=== PATIENT | female | born 1955 | race Caucasian/White ===

== ENCOUNTER 2023-07-27 15:51 | Emergency (ER) | payer OTHER ==
[2023-07-27 18:38] LABS: Absolute Basophils 0.1 K/uL (0-0.5); Absolute Eosinophils 0.2 K/uL (0-0.5); Absolute Lymphocytes (CBC) 1.8 K/uL (0.7-4.9); Absolute Monocytes 0.5 K/uL (0.1-1.3); Basophils % 0.8 % (0-1.3); Eosinophils % 2.8 % (0-4.4); Hematocrit 47.3 % (36.0-45.0); Hemoglobin 15.7 g/dL (12.0-15.0); MCH 29.5 pg (27.0-35.0); MCHC 33.1 g/dL (32.0-36.0); Monocytes % 6.3 % (3.3-12.3); Neutrophils % 69.1 % (41.7-73.7); Nucleated Red Blood Cells % 0.1 % (0-0); Platelets 198 thou/uL (152-406); RBC Red Blood Cell Count 5.32 M/uL (3.86-4.86); Red Cell Distribution Width 13.1 % (12.1-15.2)
[2023-07-27 18:57] LABS: Albumin 3.8 g/dL (3.4-5.0); Albumin/Globulin Ratio 0.9 (1.1-1.8); Bilirubin Total 0.5 mg/dL (0.2-1.0); Globulin 4.4 g/dL (2.3-3.5); Protein, Total 8.2 g/dL (6.4-8.2)
[2023-07-27] MEDS ORDERED: ONDANSETRON 4 MG/2 ML VIAL ONE (19:22)
[2023-07-27] MEDS ORDERED: PANTOPRAZOLE 40 MG INJ ONE (19:23)
[2023-07-27] MEDS ORDERED: NA CHLORIDE 0.9% 1,000 ML ONE (19:23)
[2023-07-27] MEDS ORDERED: FAMOTIDINE 20 MG/2 ML VIAL IV ONE (19:23)
--- NOTE | 2023-07-27 20:38 | RAD REPORT ---
EXAM DESCRIPTION: CT - Chest Abdomen W Con - 07/27/2023 8:27 pm CLINICAL HISTORY: Chest and abdomen pain. hematemesis/bronchitis COMPARISON: Abdomen Pelvis W Contrast dated 02/11/2022Lung Cancer Screening CT W/O dated 03/13/2019 ; Abdomen Angio dated 09/14/2020 TECHNIQUE: Approximately 100 mL nonionic IV contrast was administered to the patient. All CT scans are performed using dose optimization technique as appropriate and may include automated exposure control or mA/KV adjustment according to patient size. FINDINGS: The lungs are clear.Aberrant right subclavian artery.No pleural or pericardial effusion.No intrathoracic adenopathy.2 cm inferiorly projecting left thyroid nodule. The liver demonstrates fatty infiltration. Spleen, adrenal glands and kidneys are within normal limit s. There is 23 x 21 mm hypodense lesion mid body of the pancreas. This may represent IPMN. No bowel obstruction, free air, free fluid or abscess. Moderate stool throughout the colon. Small fat containing ventral hernias. No pathologic lymphadenopathy in the abdomen or pelvis. No acute fracture is seen. IMPRESSION: No acute abnormality is detected. 23 mm hypodense lesion midbody pancreas may represent IPMN or cystic neoplasm. Recommend nonemergent MRI pancreas followup for further workup.
--- NOTE | 2023-07-27 20:49 | ER ---
Nurse's Notes [facility] Name: Christina Madsen Age: 68 yrs Sex: Female : 1955 Arrival Date: 07/27/2023 Time: 15:51 Bed 12 Private MD: Diagnosis: Other gastritis Presentation: 07/26 16:51 Chief complaint: Patient states: ABD PAIN STARTED TODAY FELT LIKE "STOMACH DOING db FLIPS". NAUSEA AND VOMITING TODAY. VOMITED BLOOD. Coronavirus screen: Client denies travel out of the [place] in the last 14 days. At this time, the client does not indicate any symptoms associated with coronavirus-19. Ebola Screen: Patient negative for fever greater than or equal to 101.5 degrees Fahrenheit, and additional compatible Ebola Virus Disease symptoms Patient denies exposure to infectious person. Patient denies travel to an Ebola-affected area in the 21 days before illness onset. No symptoms or risks identified at this time. Initial Sepsis Screen: Does the patient meet any 2 criteria? No. Patient's initial sepsis screen is negative. Does the patient have a suspected source of infection? No. Patient's initial sepsis screen is negative. Risk Assessment: Do you want to hurt yourself or someone else? Patient reports no desire to harm self or others. Onset of symptoms was July 27, 2023. 16:51 Method Of Arrival: Ambulatory db 16:51 Acuity: TOÑO 3 db Triage Assessment: 16:52 General: Appears in no apparent distress. uncomfortable, Behavior is cooperative, db anxious. Pain: Complains of pain in abdomen. Neuro: Level of Consciousness is awake, alert, obeys commands, Oriented to person, place, time, situation. Respiratory: Airway is patent Respiratory effort is even, unlabored, Respiratory pattern is regular, symmetrical. GI: Reports nausea, vomiting. Historical: - Allergies: 16:55 No Known Allergies; db - PMHx: 16:55 Hypertensive disorder; HIATAL HERNIA; GASTRITIS; db - PSHx: 16:55 ABDOMINAL ANEURYSM; db - Immunization history:: Adult Immunizations unknown. - Infectious Disease History:: Denies. - Social history:: Smoking status: Patient reports the use of cigarette tobacco products, smokes one-half pack cigarettes per day. Screenin:34 [facility] ED Fall Risk Assessment (Adult) History of falling in the last 3 months, mb9 including since admission No falls in past 3 months (0 pts) Confusion or Disorientation No (0 pts) Intoxicated or Sedated No (0 pts) Impaired Gait No (0 pts) Mobility Assist Device Used No (0 pt) Altered Elimination No (0 pt) Score/Fall Risk Level 0 - 2 = Low Risk Oriented to surroundings, Maintained a safe environment, Educated pt \\T\\ family on fall prevention, incl call for assistance when getting out of bed. Abuse screen: Denies threats or abuse. Nutritional screening: No deficits noted. Tuberculosis screening: No symptoms or risk factors identified. Assessment: 19:33 General: Appears in no apparent distress. Behavior is calm, cooperative. Pain: Denies mb9 pain. Neuro: Mendez Agitation-Sedation Scale (RASS): 0 - Alert and Calm Level of Consciousness is awake, alert, obeys commands, Oriented to person, place, time, situation, Appropriate for age. Cardiovascular: Patient's skin is warm and dry. Respiratory: Airway is patent Respiratory effort is even, unlabored, Respiratory pattern is regular, symmetrical. GI: Abdomen is round non-distended, Abd is soft and non tender X 4 quads. Reports vomiting, blood. : No signs and/or symptoms were reported regarding the genitourinary system. EENT: No signs and/or symptoms were reported regarding the EENT system. Derm: Skin is pink, warm \\T\\ dry. Musculoskeletal: Range of motion: intact in all extremities. 20:57 Reassessment: Patient appears in no apparent distress at this time. Patient and/or mb9 family updated on plan of care and expected duration. Pain level reassessed. Patient is alert, oriented x 3, equal unlabored respirations, skin warm/dry/pink. Patient states feeling better. Patient states symptoms have improved. Vital Signs: 16:51 BP 140 / 107; Pulse 73; Resp 18; Temp 97; Pulse Ox 93% ; Weight 90.72 kg; Height 5 ft. db 8 in. ; 19:34 BP 159 / 97; Pulse 89; Resp 18; Pulse Ox 95% on R/A; Pain 0/10; mb9 20:57 BP 132 / 88; Pulse 91; Resp 18; Pulse Ox 95% on R/A; Pain 0/10; mb9 16:51 Body Mass Index 30.41 (90.72 kg, 172.72 cm) db 19:34 Pain Scale: Adult mb9 20:57 Pain Scale: Adult mb9 ED Course: 15:54 Patient arrived in ED. mg5 16:01 Jaja Valadez PA-C is [facility]. sb4 16:01 Josr Miller MD is Attending Physician. sb4 16:52 Triage completed. db 16:52 Arm band placed on left wrist. db 18:30 Inserted saline lock: 20 gauge in right antecubital area, using aseptic technique. zm Blood collected. 18:31 Initial lab(s) drawn, by me, sent to lab. zm 18:31 CBC with Diff Sent. zm 18:31 CMP Sent. zm 18:31 Lipase Sent. zm 19:32 Amanda Kirby, CIARA is Primary Nurse. mb9 19:34 Fall risk band placed. Placed in gown. Bed in low position. Call light in reach. Side mb9 rails up X 1. Provided Education on: press call light if needing anything. Client placed on continuous cardiac and pulse oximetry monitoring. NIBP monitoring applied. 19:34 No provider procedures requiring assistance completed. mb9 20:28 CT Chest Abdomen W/ Contrast In Process Unspecified. EDMS 20:48 Clyde Hernández MD is Referral Physician. sb4 20:57 IV discontinued, intact, bleeding controlled, No redness/swelling at site. Pressure mb9 dressing applied. Administered Medications: 19:28 Drug: NS 0.9% IV 1000 ml IV at 1 bolus Per protocol; 1000 mL bolus Route: IV; Rate: 1 mb9 bolus; Site: right antecubital; 20:57 Follow up: Response: No adverse reaction; IV Status: Completed infusion mb9 19:30 Drug: Famotidine IVP 20 mg IVP once; dilute with 10 mL 0.9% NaCl; give over 2 minutes mb9 Route: IVP; Site: right antecubital; 20:57 Follow up: Response: No adverse reaction mb9 19:30 Drug: Ondansetron IVP 4 mg IVP once; over 2 minutes Route: IVP; Site: right antecubital;mb9 20:57 Follow up: Response: No adverse reaction mb9 19:32 Drug: Pantoprazole IVP 40 mg IVP once Route: IVP; Site: right antecubital; mb9 20:57 Follow up: Response: No adverse reaction mb9 Medication: 20:58 VIS not applicable for this client. mb9 Outcome: 20:48 Discharge ordered by . toi 20:57 Discharged to home ambulatory, mb9 20:57 Condition: stable 20:57 Discharge instructions given to patient, Instructed on discharge instructions, follow up and referral plans. Demonstrated understanding of instructions, follow-up care, medications, Prescriptions given X 2, 20:58 Patient left the ED. mb9 Signatures: Dispatcher [employer] EDMargarita Schwarz Danielle, RN RN Jaja Desai, PA-C PA-C eder4 Amanda Kirby RN RN mb9 Jory Penny mg5 Corrections: (The following items were deleted from the chart) 16:55 16:51 Pulse 73bpm; Resp 18bpm; Pulse Ox 93%; Temp 97F; db db
--- NOTE | 2023-07-27 20:49 | EDPHYS ---
Physician Documentation [facility] Name: Christina Madsen Age: 68 yrs Sex: Female : 1955 Arrival Date: 07/27/2023 Time: 15:51 Bed 12 Private MD: ED Physician Josr Miller HPI: 07/26 17:08 This 68 yrs old Female presents to ER via Ambulatory with complaints of Abdominal Pain. sb4 17:08 The patient presents with abdominal pain in the epigastric area. Onset: The sb4 symptoms/episode began/occurred this morning. The symptoms do not radiate. Associated signs and symptoms: Pertinent positives: nausea and vomiting, vomiting blood. The symptoms are described as burning. Modifying factors: The symptoms are alleviated by nothing, the symptoms are aggravated by nothing. The patient has not experienced similar symptoms in the past. Historical: - Allergies: 16:55 No Known Allergies; db - PMHx: 16:55 Hypertensive disorder; HIATAL HERNIA; GASTRITIS; db - PSHx: 16:55 ABDOMINAL ANEURYSM; db - Immunization history:: Adult Immunizations unknown. - Infectious Disease History:: Denies. - Social history:: Smoking status: Patient reports the use of cigarette tobacco products, smokes one-half pack cigarettes per day. ROS: 17:08 Constitutional: Negative for fever, chills, and weight loss, sb4 17:08 Respiratory: Positive for cough, 17:08 Abdomen/GI: Positive for abdominal pain, nausea and vomiting, hematemesis, 17:08 All other systems are negative, Exam: 17:09 Constitutional: This is a well developed, well nourished patient who is awake, alert, sb4 and in no acute distress. Head/Face: Normocephalic, atraumatic. Eyes: Extra-ocular motions intact. Periorbital areas with no swelling, redness, or edema. ENT: Mucous membranes moist. Cardiovascular: Regular rate and rhythm with a normal S1 and S2. Respiratory: Lungs have equal breath sounds bilaterally, clear to auscultation and percussion. No rales, rhonchi or wheezes noted. No increased work of breathing, no retractions or nasal flaring. Abdomen/GI: Soft, non-tender, no distension. Skin: Warm, dry with normal turgor. Normal color with no rashes, no lesions, and no evidence of cellulitis. MS/ Extremity: Pulses equal, no cyanosis. Neurovascular intact. Full, normal range of motion. Vital Signs: 16:51 BP 140 / 107; Pulse 73; Resp 18; Temp 97; Pulse Ox 93% ; Weight 90.72 kg; Height 5 ft. db 8 in. ; 19:34 BP 159 / 97; Pulse 89; Resp 18; Pulse Ox 95% on R/A; Pain 0/10; mb9 20:57 BP 132 / 88; Pulse 91; Resp 18; Pulse Ox 95% on R/A; Pain 0/10; mb9 16:51 Body Mass Index 30.41 (90.72 kg, 172.72 cm) db 19:34 Pain Scale: Adult mb9 20:57 Pain Scale: Adult mb9 MDM: 16:48 Patient medically screened. sb4 20:48 Data reviewed: vital signs, nurses notes, lab test result(s), radiologic studies, and sb4 as a result, I will discharge patient. Care significantly affected by the following chronic conditions: Hypertension. Counseling: I had a detailed discussion with the patient and/or guardian regarding the historical points, exam findings, and any diagnostic results supporting the discharge/admit diagnosis, lab results, radiology results, the need for outpatient follow up, a sales planner, to return to the emergency department if symptoms worsen or persist or if there are any questions or concerns that arise at home, smoking cessation. Special discussion: Further emergent ED testing is not indicated at this point in time. I discussed with the patient/guardian in detail the need to arrange with the PCP or specialist further outpatient testing, MRI, I discussed with the patient the need to follow-up with the PCP/specialist for the noted incidental finding on X-ray/CT scanning. 07/26 16:56 Order name: CBC with Diff; Complete Time: 18:47 sb4 07/26 16:56 Order name: CMP; Complete Time: 19:10 sb4 07/26 16:56 Order name: Lipase; Complete Time: 19:10 sb4 07/26 16:56 Order name: CT Chest Abdomen W/ Contrast; Complete Time: 20:40 sb4 07/26 16:56 Order name: IV Saline Lock; Complete Time: 18:30 sb4 07/26 16:56 Order name: Labs collected and sent; Complete Time: 18:30 sb4 Administered Medications: 19:28 Drug: NS 0.9% IV 1000 ml IV at 1 bolus Per protocol; 1000 mL bolus Route: IV; Rate: 1 mb9 bolus; Site: right antecubital; 20:57 Follow up: Response: No adverse reaction; IV Status: Completed infusion mb9 19:30 Drug: Famotidine IVP 20 mg IVP once; dilute with 10 mL 0.9% NaCl; give over 2 minutes mb9 Route: IVP; Site: right antecubital; 20:57 Follow up: Response: No adverse reaction mb9 19:30 Drug: Ondansetron IVP 4 mg IVP once; over 2 minutes Route: IVP; Site: right antecubital;mb9 20:57 Follow up: Response: No adverse reaction mb9 19:32 Drug: Pantoprazole IVP 40 mg IVP once Route: IVP; Site: right antecubital; mb9 20:57 Follow up: Response: No adverse reaction mb9 Disposition Summary: 07/27/23 20:48 Discharge Ordered Notes: Location: Home sb4 Problem: new sb4 Symptoms: have improved sb4 Condition: Stable sb4 Diagnosis - Other gastritis sb4 Followup: sb4 - With: Clyde Hernández MD - When: 1 week - Reason: Further diagnostic work-up, Recheck today's complaints, Re-evaluation by your physician Discharge Instructions: - Discharge Summary Sheet sb4 - Gastritis, Adult, [id number] sb4 Forms: - Patient Portal Instructions sb4 - Leadership Thank You Letter sb4 Prescriptions: - pantoprazole 40 mg Oral tablet, delayed release (enteric coated) - take 1 tablet ORAL route daily for 4 wks; 30 tablet; Refills: 0, Product sb4 Selection Permitted - ondansetron 8 mg Oral Tablet,disintegrating - take 1 tablet ORAL route every 8 hours; 20 tablet; Refills: 0, Product sb4 Selection Permitted Addendum: 07/30/2023 19:05 Co-signature as Attending Physician, Josr Miller MD I reviewed the patient's care r t provided by the Advanced Practice Provider and agree with the diagnosis and treatment plan. Signatures: Dispatcher [employer] Amy Garcia RN RN db Brown, Sophia, PA-C PA-C sb4 Amanda Kirby RN RN mb9 [place], Josr, MD MD rt
[2023-07-27 21:43] VITALS: BP 132/88; TEMP 97; O2SAT 95
== END 2023-07-27 20:58 | disposition home or self-care (01) ==
LOC: ER 15:51
DX: K29.60 Other gastritis without bleeding (principal); I10 Essential (primary) hypertension; F17.210 Nicotine dependence, cigarettes, uncomplicated
CPT/HCPCS: 96361; 85025; 36415; 83690; 80053; 74160; 71260; 96375; 96374; 99284; Q9967; C9113; J2405; J7030

== ENCOUNTER 2023-08-07 02:04 | Emergency (ER) | payer OTHER ==
[2023-08-07] MEDS ORDERED: ONDANSETRON 4 MG/2 ML VIAL ONE (02:48)
[2023-08-07] MEDS ORDERED: MORPHINE 4 MG/ML SYR ONE (03:01)
[2023-08-07 03:19] LABS: Absolute Eosinophils 0.1 K/uL (0-0.5); Absolute Lymphocytes (CBC) 0.5 K/uL (0.7-4.9); Absolute Neutrophil 3.6 K/uL (1.8-8.0); Basophils % 0.6 % (0-1.3); Eosinophils % 1.9 % (0-4.4); Hematocrit 46.3 % (36.0-45.0); Hemoglobin 15.4 g/dL (12.0-15.0); MCH 29.6 pg (27.0-35.0); MCHC 33.3 g/dL (32.0-36.0); MCV 88.8 fL (80-100); MPV 8.1 fL (7.6-11.3); Monocytes % 0.5 % (3.3-12.3); Nucleated Red Blood Cells % 0.5 % (0-0); Platelets 191 thou/uL (152-406); RBC Red Blood Cell Count 5.22 M/uL (3.86-4.86)
[2023-08-07 03:20] LABS: Specific Gravity 1.027 (1.005-1.030); Sqamous Epithelial <5 /HPF (None Seen); Urine Bacteria 20-50 /HPF (<20); Urine Bilirubin NEGATIVE (Negative); Urine Blood 3+ (OVER) (Negative); Urine Clarity Extremely Turbid (Clear); Urine Color Yellow (Yellow); Urine Culture Reflex Order REFLEXED; Urine Glucose NEGATIVE (Negative); Urine Ketones TRACE (Negative); Urine Microscopic Reflex YN ORDER UMIC; Urine Mucus 1+ /HPF (None Seen); Urine Nitrite 2+ (Negative); Urine Protein 1+ (Negative); Urine RBC 21-50 /HPF (None Seen); Urine Urobilinogen 1+ (Normal); Urine WBC >50 /HPF (<5); Urine WBC Clump Few /HPF (None Seen); Urine Yeast (Budding) Occasional /HPF (None Seen)
[2023-08-07 03:24] LABS: Albumin 3.6 g/dL (3.4-5.0); Anion Gap 8.2 mEq/L (5.0-15.0); Bilirubin Total 0.4 mg/dL (0.2-1.0); Globulin 3.7 g/dL (2.3-3.5); Potassium 3.2 mEq/L (3.5-5.1); Protein, Total 7.3 g/dL (6.4-8.2)
[2023-08-07] MEDS ORDERED: CEFTRIAXONE 1000 MG/VIAL ONE (04:05)
--- NOTE | 2023-08-07 05:28 | ER ---
Nurse's Notes [facility] Name: Christina Madsen Age: 68 yrs Sex: Female : 1955 Arrival Date: 08/07/2023 Time: 02:04 Bed 14 Private MD: Diagnosis: Other and unspecified hydronephrosis;Pyelonephritis acute Presentation: 08/06 02:16 Chief complaint: Patient states: I am having right lower abdominal pain, and nausea. I jb4 took a gas pill and Dasha-Rankin, and Zofran prior to coming. I feel constipated. Coronavirus screen: At this time, the client does not indicate any symptoms associated with coronavirus-19. Ebola Screen: No symptoms or risks identified at this time. Initial Sepsis Screen: Does the patient meet any 2 criteria? No. Patient's initial sepsis screen is negative. Does the patient have a suspected source of infection? No. Patient's initial sepsis screen is negative. Risk Assessment: Do you want to hurt yourself or someone else? Patient reports no desire to harm self or others. Onset of symptoms was August 07, 2023. Transition of care: patient was not received from another setting of care. 02:16 Method Of Arrival: Ambulatory jb4 02:16 Acuity: TOÑO 3 jb4 Historical: - Allergies: 02:18 No Known Allergies; jb4 - PMHx: 02:18 gastritis; hiatal hernia; Hypertensive disorder; pancreatic lesion (ABDOMINAL jb4 ANEURYSM); Ulcer; Diverticulitis; - PSHx: 02:18 ABDOMINAL ANEURYSM; tubal ligation; hernia repair; jb4 - Immunization history:: Adult Immunizations. - Infectious Disease History:: Denies. - Social history:: Smoking status: Patient reports the use of cigarette tobacco products, smokes one-half pack cigarettes per day, Patient uses alcohol, occasionally. - Family history:: not pertinent. - Hospitalizations: : No recent hospitalization is reported. Screenin:20 [facility] ED Fall Risk Assessment (Adult) History of falling in the last 3 months, jb4 including since admission No falls in past 3 months (0 pts) Confusion or Disorientation No (0 pts) Intoxicated or Sedated No (0 pts) Impaired Gait No (0 pts) Mobility Assist Device Used No (0 pt) Altered Elimination No (0 pt) Score/Fall Risk Level 0 - 2 = Low Risk Oriented to surroundings, Maintained a safe environment. Abuse screen: Denies threats or abuse. Nutritional screening: No deficits noted. Tuberculosis screening: No symptoms or risk factors identified. Assessment: 02:20 General: Appears in no apparent distress. uncomfortable, Behavior is calm, cooperative, jb4 appropriate for age. Pain: Complains of pain in right lower quadrant Pain does not radiate. Pain currently is 10 out of 10 on a pain scale. Neuro: Level of Consciousness is awake, alert, obeys commands, Oriented to person, place, time, situation. Cardiovascular: Patient's skin is warm and dry. Respiratory: Airway is patent Respiratory effort is even, unlabored, Respiratory pattern is regular, symmetrical. GI: Abdomen is non-distended, obese, Reports lower abdominal pain, constipation, nausea. : No signs and/or symptoms were reported regarding the genitourinary system. EENT: No signs and/or symptoms were reported regarding the EENT system. Derm: Skin is intact, Skin is pink, warm \T\ dry. Musculoskeletal: Circulation, motion, and sensation intact. Range of motion: intact in all extremities. 03:55 Reassessment: Patient appears in no apparent distress at this time. Patient and/or jb4 family updated on plan of care and expected duration. Pain level reassessed. Patient is alert, oriented x 3, equal unlabored respirations, skin warm/dry/pink. 04:59 Reassessment: Patient appears in no apparent distress at this time. Patient and/or jb4 family updated on plan of care and expected duration. Pain level reassessed. Patient is alert, oriented x 3, equal unlabored respirations, skin warm/dry/pink. 06:00 Reassessment: Pt is resting in bed with eyes closed, respirations are even and jb4 unlabored with no s/s of pain or distress noted. 06:47 Reassessment: Patient appears in no apparent distress at this time. No changes from jb4 previously documented assessment. Patient and/or family updated on plan of care and expected duration. Pain level reassessed. 06:53 Reassessment: attempted to call report. Informed that the nurses on site were in the jb4 middle of shift change and needed to call back. 07:00 Reassessment: Successful attempt to call report, transfer form complete, . rs5 07:54 Reassessment: EMS AT B/S FOR TRANSPORT. bp Vital Signs: 02:16 BP 172 / 79; Pulse 61; Resp 16; Temp 96.9(TE); Pulse Ox 95% on R/A; Weight 90.72 kg jb4 (R); Height 5 ft. 8 in. (R); Pain 10/10; 03:55 BP 154 / 82; Pulse 88; Resp 16; Pulse Ox 93% on R/A; jb4 04:59 BP 127 / 62; Pulse 88; Resp 16; Pulse Ox 99% ; jb4 06:30 BP 123 / 65; Pulse 80; Resp 18; Pulse Ox 100% on R/A; jb4 07:54 BP 132 / 76; Pulse 79; Resp 16; Pulse Ox 98% ; bp 02:16 Body Mass Index 30.41 (90.72 kg, 172.72 cm) jb4 02:16 Pain Scale: Adult 4 ED Course: 02:09 Patient arrived in ED. gm2 02:12 Jac Osborn MD is Attending Physician. rn 02:16 Dangelo George, RN is Primary Nurse. jb4 02:18 Triage completed. jb4 02:18 Arm band placed on right wrist. jb4 02:20 Patient has correct armband on for positive identification. Bed in low position. Call jb4 light in reach. Side rails up X 1. Provided Education on: plan of care. 02:20 No provider procedures requiring assistance completed. jb4 02:35 Initial lab(s) drawn, by ks, sent to lab. Urine collected: clean catch specimen, clear, ty sukumar colored. Inserted saline lock: 22 gauge in right forearm, using aseptic technique. Blood collected. 03:44 CT Abd/Pelvis - IV Contrast Only In Process Unspecified. EDMS 05:31 Attempted to contacted [facility] 3 times. kmf 05:43 initiated contact with [facility] \T\ [facility] . kmf 06:[address] [facility] room 5O- 803, accepting Leila Engel accepted 0629. [facility] Admin approval given by Phani Valadez \T\ [id number]. 07:39 Primary Nurse role handed off by Dangelo George, RN bp 07:39 Francesco Benitez, RN is Primary Nurse. bp 07:54 Patient transferred, IV remains in place. bp Administered Medications: 02:45 Drug: Ondansetron IVP 4 mg IVP once; over 2 minutes Route: IVP; Site: right forearm; jb4 07:56 Follow up: Response: No adverse reaction bp 03:04 Drug: morphine IVP or IV 4 mg IVP once over 4 mins Route: IVP; Infused Over: 4 mins; jb4 Site: right forearm; 07:56 Follow up: Response: No adverse reaction bp 04:13 Drug: Rocephin IV 1 grams IV at calculated rate once; Given slow IV push per pharmacy jb4 instructions Route: IV; Rate: calculated rate; Site: right forearm; 07:55 Follow up: IV Status: Completed infusion; IV Intake: 1000ml bp Medication: 02:20 VIS not applicable for this client. jb4 Intake: 07:55 IV: 1000ml; Total: 1000ml. bp Outcome: 05:28 ER care complete, transfer ordered by . rn 07:54 Transferred by ground EMS to [facility], Transfer form completed. bp 07:54 Condition: stable 07:54 Instructed on the need for transfer, 07:56 Patient left the ED. bp Signatures: Dispatcher [employer] EDMS Jac Osborn MD MD rn Bryson, James RN RN jb4 Francesco Benitez RN RN Raz Kunz RN RN rs5 Janice Mcneal 2 Tawnya Christopher [facility] Peter Millan Corrections: (The following items were deleted from the chart) 06:32 06:28 initiated contact with [facility] 06:34 05:43 initiated contact with [facility]
--- NOTE | 2023-08-07 05:28 | EDPHYS ---
Physician Documentation [facility] Name: Christina Madsen Age: 68 yrs Sex: Female : 1955 Arrival Date: 08/07/2023 Time: 02:04 Bed 14 Private MD: ED Physician Jac Osborn HPI: 08/06 02:49 This 68 yrs old Female presents to ER via Ambulatory with complaints of rn Nausea/Vomiting, Abdominal Pain. 02:49 The patient presents to the emergency department with nausea, vomiting, abdominal pain. rn Onset: The symptoms/episode began/occurred today. Possible causes: unknown. The symptoms are aggravated by nothing. The symptoms are alleviated by nothing. Severity of symptoms: At their worst the symptoms were moderate in the emergency department the symptoms are unchanged. The patient has not experienced similar symptoms in the past. The patient has been recently seen at the [facility] Emergency Department. Patient reports right lower quadrant abdominal pain associated with nausea. Also reports constipation. Also reports urinary frequency and dysuria. No hematuria. No history of kidney stones.. Historical: - Allergies: 02:18 No Known Allergies; jb4 - PMHx: 02:18 gastritis; hiatal hernia; Hypertensive disorder; pancreatic lesion (ABDOMINAL jb4 ANEURYSM); Ulcer; Diverticulitis; - PSHx: 02:18 ABDOMINAL ANEURYSM; tubal ligation; hernia repair; jb4 - Immunization history:: Adult Immunizations. - Infectious Disease History:: Denies. - Social history:: Smoking status: Patient reports the use of cigarette tobacco products, smokes one-half pack cigarettes per day, Patient uses alcohol, occasionally. - Family history:: not pertinent. - Hospitalizations: : No recent hospitalization is reported. ROS: 02:49 Constitutional: Negative for fever, chills, and weight loss, Cardiovascular: Negative rn for chest pain, palpitations, and edema, Respiratory: Negative for shortness of breath, cough, wheezing, and pleuritic chest pain, Abdomen/GI: Positive for abdominal pain with nausea Back: Negative for injury and pain, : Positive for dysuria and increased urinary frequency MS/Extremity: Negative for injury and deformity, Skin: Negative for injury, rash, and discoloration, Neuro: Negative for headache, weakness, numbness, tingling, and seizure, Exam: 02:49 Constitutional: This is a well developed, well nourished patient who is awake, alert, rn standing hunched over bed, appears uncomfortable Cardiovascular: Regular rate and rhythm. No pulse deficits. Respiratory: No increased work of breathing, no retractions or nasal flaring. Abdomen/GI: Soft, right lower quadrant tenderness. No rebound or guarding. No masses. MS/ Extremity: Pulses equal, no cyanosis. Neuro: Awake and alert, GCS 15 Vital Signs: 02:16 BP 172 / 79; Pulse 61; Resp 16; Temp 96.9(TE); Pulse Ox 95% on R/A; Weight 90.72 kg jb4 (R); Height 5 ft. 8 in. (R); Pain 10/10; 03:55 BP 154 / 82; Pulse 88; Resp 16; Pulse Ox 93% on R/A; jb4 04:59 BP 127 / 62; Pulse 88; Resp 16; Pulse Ox 99% ; jb4 06:30 BP 123 / 65; Pulse 80; Resp 18; Pulse Ox 100% on R/A; jb4 07:54 BP 132 / 76; Pulse 79; Resp 16; Pulse Ox 98% ; bp 02:16 Body Mass Index 30.41 (90.72 kg, 172.72 cm) jb4 02:16 Pain Scale: Adult jb4 MDM: 02:12 Patient medically screened. rn 05:43 Differential diagnosis: Nonspecific abd pain, appendicitis, diverticulitis, Kidney rn stone, pyelonephritis. Data reviewed: vital signs, nurses notes, lab test result(s), radiologic studies, CT scan, and as a result, I will admit patient. Consideration of Admission/Observation Patient was admitted/placed on observation. Escalation of care including admission/observation considered. Counseling: I had a detailed discussion with the patient and/or guardian regarding the historical points, exam findings, and any diagnostic results supporting the discharge/admit diagnosis, lab results, radiology results, the need to transfer to another facility, for higher level of care, [facility] does not immediately have the required specialist. Response to treatment: the patient's symptoms have mildly improved after treatment, and as a result, I will admit patient. ED course: Called [facility] 3 separate times for transfer and never got through to transfer center. Decision made to go elsewhere.. 08/06 02:31 Order name: CBC with Diff; Complete Time: 03:24 rn 08/06 02:31 Order name: CMP; Complete Time: 03:26 rn 08/06 02:31 Order name: Lipase; Complete Time: 03:26 rn 08/06 02:31 Order name: Urinalysis w/ reflexes; Complete Time: 03:26 rn 08/06 03:28 Order name: Urine Culture EDMS 08/06 02:31 Order name: CT Abd/Pelvis - IV Contrast Only rn 08/06 02:31 Order name: IV Saline Lock; Complete Time: 03:27 rn 08/06 02:31 Order name: Labs collected and sent; Complete Time: 03:27 rn Administered Medications: 02:45 Drug: Ondansetron IVP 4 mg IVP once; over 2 minutes Route: IVP; Site: right forearm; jb4 07:56 Follow up: Response: No adverse reaction bp 03:04 Drug: morphine IVP or IV 4 mg IVP once over 4 mins Route: IVP; Infused Over: 4 mins; jb4 Site: right forearm; 07:56 Follow up: Response: No adverse reaction bp 04:13 Drug: Rocephin IV 1 grams IV at calculated rate once; Given slow IV push per pharmacy jb4 instructions Route: IV; Rate: calculated rate; Site: right forearm; 07:55 Follow up: IV Status: Completed infusion; IV Intake: 1000ml bp Disposition Summary: 08/07/23 05:28 Transfer Ordered Notes: Reason: Higher level of care rn Condition: Stable rn Problem: new rn 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 EDMS EDMS 02:32 02:32 COMPREHENSIVE METABOLIC PANEL+C.LAB.BRZ ordered. EDMS EDMS 02:32 02:32 LIPASE+C.LAB.BRZ ordered. EDMS EDMS 02:32 02:32 Urinalysis+U.LAB.BRZ ordered. EDMS EDMS 02:32 02:32 Abdomen Pelvis W Con+CT.RAD.BRZ ordered. EDMS EDMS 05:44 05:28 Dr. muller rn 05:44 05:28 [facility] rn rn 07:56 05:44 Dr. muller bp
[2023-08-07 08:22] VITALS: BP 132/76; TEMP 96.9; O2SAT 98
--- NOTE | 2023-08-07 14:11 | RAD REPORT ---
EXAM DESCRIPTION: CT ABDOMEN PELVIS WITH IV CONTRAST CLINICAL HISTORY: Female, 68 years old, ABD PAIN COMPARISON: CT chest/abdomen/pelvis 07/27/2023 TECHNIQUE: CT acquisition of the abdomen and pelvis following the administration of IV contrast. Cor onal and sagittal reformatted images provided. This exam was performed according to departmental dose -optimization program which includes automated exposure control, adjustment of the mA and/or kV accor ding to patient size, and/or use of iterative reconstruction technique. FINDINGS: SUPPORTIVE DEVICES: None. LOWER CHEST: Mild basilar scarring/atelectasis. Right lower lobe calcified granuloma. Unremarkable im aged heart. ABDOMEN AND PELVIS: Liver: Diffuse hypoenhancement relative to the spleen. Gallbladder and bile ducts: Normal. Pancreas: Unchanged cystic 2.2 cm lesion within the body which appears multilobulated and possibly se ptated. Spleen: Normal. Adrenal glands: Normal. Kidneys and ureters: Interval development of moderate right hydroureteronephrosis with delayed nephro gram and prominent perinephric stranding. Soft tissue density contents in the distal ureter with meni scus (coronal image 76/119) before coursing between adjacent small bowel loops and near the uterine i nfundibulum. The visualized urinary stone. Redemonstration of a subcentimeter hypodense lesion in eac h kidney with average attenuation between 30-35 Hounsfield units. The left ureter is unremarkable. Bladder: Nondistended without evident abnormality. Reproductive organs: Unremarkable as visualized. GI tract: Normal caliber without wall thickening. No evidence of appendicitis. Lymph nodes: No evident adenopathy. Peritoneum: No evidence of ascites, fluid collection, or free air. Abdominal wall: Ventral postsurgical change. Vessels: Atherosclerosis without evidence of aneurysm. MUSCULOSKELETAL: No acute osseous abnormality. Degenerative change of the spine and pelvis. Degenerat deniz listhesis of L4-L5 and L5-S1. IMPRESSION: 1. Interval development of moderate obstructive appearance of the right upper urinary tract. Soft tissue and (but not calcified) density within the pelvic ureter may represent the presenc e of noncalcified stones, sludge from external compression as discussed above, or other type of debri s. Consider urology consultation. 2. Unchanged 2.2 cm pancreatic cystic lesion, see recommendation from prior report. 3. Incompletely characterized renal lesions are most likely benign however are not water density by CT. Correlate with outpatient renal ultrasound. Electronically signed by: Sid Kee MD 08/07/2023 05:19 AM CDT RP Due to temporary technical issues with the PACS/Fluency reporting system, reports are being signed by the in house radiologist without review as a courtesy to ensure prompt reporting. The interpreting r adiologist is fully responsible for the content of the report.
== END 2023-08-07 07:56 | disposition short-term general hospital (02) ==
LOC: ER 02:04
DX: N10 Acute pyelonephritis (principal); N13.39 Other hydronephrosis
CPT/HCPCS: 96365; 87088; 85025; 81001; 87086; 36415; 87077; 87186; 83690; 80053; 74177; 96375; 99285; 96366; Q9967; J2405; J0696